=== PATIENT | female | born 1960 | race Caucasian/White ===

== ENCOUNTER 2020-03-03 13:22 | Outpatient (CLI) | payer OTHER, SELFPAY ==
--- NOTE | 2020-03-03 14:10 | XRR_ITS ---
PROCEDURE INFORMATION: Exam: XR Abdomen, 1 View Exam date and time: 03/03/2020 2:14 PM Age: 59 years old Clinical indication: Condition or disease; Kidney or ureter condition; Calculus (stone) in kidney; Prior surgery; Surgery date: 6+ months; Surgery type: Hysterectomy; Patient HX: HX of renal stone; Follow up TECHNIQUE: Imaging protocol: XR of the abdomen. Views: Frontal supine view of the abdomen. 1 View. COMPARISON: CR XR KUB [id number] 09/11/2018 9:43 AM FINDINGS: Gastrointestinal tract: Normal. No bowel dilation. Organs: No kidney or ureteral stone evident. Prior cholecystectomy. Bones/joints: Right hip arthroplasty in place. Soft tissues: Extensive soft tissue calcifications throughout lower abdomen and pelvis, presumably old injection sites. XR/XR KUB [id number] IMPRESSION: No kidney or ureteral stone evident.
== END 2020-03-03 13:23 | disposition home or self-care (01) ==
LOC: RAD 13:25
PROVIDERS: PCP Nurse Practitioner; Visit Provider Urology
DX: N20.0 Calculus of kidney (principal)
CPT/HCPCS: 74018; 81001

== ENCOUNTER 2020-08-23 07:28 | Emergency (ER) | payer OTHER, SELFPAY ==
[2020-08-23] VITALS (7 sets, daily range): BP systolic 145–196; BP diastolic 67–91; PULSE 68–84; RESP 16–18; TEMP 36.9; O2SAT 95–99; BMI 24.2
--- NOTE | 2020-08-23 07:39 | CT_ITS ---
WS: [id number] CT CERVICAL SPINE HISTORY: fall/trauma TECHNIQUE: Contiguous 2.5 mm axial imaging performed through the entire cervical spine. Sagittal and coronal reformats also performed. All CT scans at [facility] use at least one of these do se optimization techniques: automated exposure control; mA and/or kV adjustment per patient size (inc ludes targeted exams where dose is matched to clinical indication); or iterative reconstruction. DLP: 400.66 mGy.cm COMPARISON: None available. Normal cervical alignment. Craniocervical junction, atlantodental interval and C1-C2 alignment is nor mal. Facet joint narrowing and arthritis throughout the cervical spine. Facet joints are normally aligned. No cervical fracture is identified. Lateral masses of C1 and C2 are aligned. Craniocervical junction is intact. No central stenosis or acute-appearing disc herniations. Lung apices are clear. CT/CT cervical spin wo con* [id number] IMPRESSION: 1. No acute cervical spine fracture identified. 2. Facet joint arthritis.
--- NOTE | 2020-08-23 07:39 | ED_ITS ---
Documented by User: [email or web address] Mcwilliams 08/23/20 10:21 HPI - Head Injury General: Chief complaint: Head Injury Stated complaint: FALL, LAC ON HEAD Time Seen by Provider: 08/23/20 07:33 Source: patient Mode of arrival: EMS Limitations: no limitations History of Present Illness: HPI Narrative: Patient is a very nice 60-year-old female who presents to ED today with complaints of a head injury. Patient tells me she accidentally backed into a few boxes causing her to fall backwards and strike the posterior aspect of her head. She denies LOC. Incident was approximately 1.5 hours ago. She currently complains of nausea with vomiting and dizziness. Patient is on Xarelto. She has mild tailbone pain but is ambulating without difficulty. MD Complaint: head injury Onset (ago): hour(s) Mechanism of Injury: fall Place: home Loss of Consciousness: no Associated symptoms: Reports nausea and vomiting; Deny neck pain Review of Systems Const: Denies: fever(s), chills or body aches Eyes: Denies: change in vision, blurry vision or photophobia Card: Denies: chest pain Resp: Denies: dyspnea GI: Reports: nausea and vomiting; Denies: abdominal pain or diarrhea Musc: Reports: back pain (tailbone pain); Denies: neck pain, extremity pain, extremity swelling, joint pain or joint swelling Skin/Breast: Reports: other (scalp laceration) Neuro: Reports: headache(s); Denies: numbness in extremities, weakness in extremities or sensory changes [facility] ED PFSH: Medical History (Updated 08/23/20 @ 10:45 by Bj George DO) Afib Calculus of kidney Fatty liver Hypokalemia Personal history of urinary (tract) infections Rheumatoid arthritis S/P extracorporeal shock wave therapy Thrombocytopenia Surgical History History of cardiac radiofrequency ablation History of total right hip replacement Hx of cholecystectomy Hx of hysterectomy, total Family History Family/Other Diabetes Hypertension Lung disease Thyroid disease Arthritis Social History Smoking and tobacco status: never smoked Alcohol intake: never Marital status: Current occupational status: employed Physical Exam Const: COMMON NORMALS: no acute distress, average body habitus, patient oriented x3, no limitations, healthy appearing, alert and well nourished ORIENTATION/CONSCIOUSNESS: Yes oriented to person, Yes oriented to place and Yes oriented to time HENMT: FACE & SINUS: normal facial exam OTHER: dried blood and scalp laceration to posterior scalp; no active bleeding; laceration approximately 2cm Neck/C-Spine: COMMON NORMALS: full ROM GENERAL: Yes normal visual inspection CERVICAL SPINE: Yes cervical ROM normal Chest: COMMONS NORMALS: normal inspection of the chest and normal palpation of entire chest wall Resp: COMMON NORMALS: normal respiratory effort and clear to auscultation bilaterally AUSCULTATION: clear to auscultation bilaterally Cardio: COMMON NORMALS: regular rate and regular rhythm RATE: regular rate RHYTHM: regular rhythm Back/Pelvis: COMMON NORMALS: thoracic and lumbar spine normal to inspection, no thoracic nor lumbar tenderness, thoraco-lumbar ROM normal and straight leg raise negative bilaterally COCCYX: Coccyx tenderness present (mild) Extremity: COMMON NORMALS: normal to inspection and full ROM GENERAL: Yes normal exam except as noted Neuro: ANTHONY COMA SCALE: document GCS findings Anthony coma scale eye opening: Spontaneous Anthony coma scale verbal response: Orientated Heth coma scale motor response: Obey commands Heth coma scale total score: 15 COMMON NORMALS: patient oriented x3, CN's II-XII intact bilaterally, moves all e xtremities, no focal motor deficits and no sensory deficits noted SENSORIUM/ORIENTATION: Yes alert, Yes oriented to person, Yes oriented to place and Yes oriented to time Skin: NARRATIVE SKIN EXAM: scalp laceration Procedures Laceration Laceration 1: Site: scalp Size (cm): 2.0 Description: irregular Depth: simple, single layer Local Anesthetic: lidocaine 1% and with epi Amount of anesthesia used (mL): 2.0 Pre-repair: wound explored and irrigated extensively Skin layer closed with: nylon Size (cm): 5-0 Number of sutures: 5 Technique: simple, interrupted Course ED course: CT was called immediately after my exam to take pt STAT to CT as I was concerned for intracranial hemorrhage Vital Signs: Vital signs: Vital Signs Temperature 98.5 F 08/23/20 07:29 Pulse Rate 75 08/23/20 10:20 Respiratory Rate 18 08/23/20 10:20 Blood Pressure 145/87 08/23/20 10:20 Pulse Oximetry 99 08/23/20 10:20 MDM - Head Injury MDM Narrative: Medical decision making narrative: Dr. George made aware of patient and was again notified as soon as I received CT report. He will evaluate patient and speak to outside facility for transfer. Lab Data: Labs: Lab Results 08/23/20 08/23/20 08/23/20 Range/Units 09:09 09:09 09:09 WBC 7.7 (4.0-10.0) 10^3/ uL RBC 4.40 (4.1-5.3) 10^6/u L Hgb 12.4 (11.5-15.3) g/dL Hct 37.3 (37.0-47.0) % MCV 84.8 (81-99) fL MCH 28.2 (28.0-34.0) pg MCHC 33.2 (30.0-36.0) g/dL RDW 13.2 (12.1-15.1) % Plt Count 102 L (130-400) 10^3/c mm MPV 11.2 H (7.4-10.4) fL Neut % (Auto) 83.4 % Lymph % (Auto) 11.2 % [place] % (Auto) 4.2 % Eos % (Auto) 0.4 % Baso % (Auto) 0.3 % Neut # (Auto) 6.41 (1.8-7.7) 10^3/u L Lymph # (Auto) 0.9 (0.8-4.8) 10^3/u L [place] # (Auto) 0.3 (0.2-0.9) 10^3/u L Eos # (Auto) 0.0 (0.0-0.8) 10^3/u L Baso # (Auto) 0.0 (0.0-0.1) 10^3/u L Nucleated RBC % (a uto) 0 % Nucleated RBCs # 0.0 /100WBC PT 22.60 H (12.1-14.9) SECO NDS INR 1.92 H (0.8-1.2) APTT 30.6 (23.9-36.7) SECO NDS Sodium 138 (136-145) mmol/L Potassium 3.7 (3.5-5.1) mmol/L Chloride 100 (98-107) mmol/L Carbon Dioxide 25 (22-29) mmol/L Anion Gap 16.7 (5-19) BUN 13 (8-23) mg/dL Creatinine 0.3 L (0.5-0.9) mg/dL GFR Calculation 226.9 H (90-130) mL/min Glucose 273 H (65-115) mg/dL Calculated Osmolal ity 296 H (285-295) mOsm/k g Calcium 8.9 (8.5-10.5) mg/dL Total Bilirubin 0.6 (0.15-1.2) mg/dL AST 36 H (0-32) U/L ALT 41 H (0-33) U/L Alkaline Phosphata se 72 (35-105) IU/L Total Protein 6.8 (6.6-8.7) g/dL Albumin 4.1 (3.5-5.2) g/dL Globulin 2.7 (1.3-4.6) g/dL Imaging Data^: CT Head: Radiologist's impression: [address] [address] [address] Scan Report Signed Patient: Leslie Calzada Unit #: [id number] : 1960 Age/Sex: 60 / F ADM Date: 08/23/20 Loc: ER Room/Bed: Attending Dr: Ordering Provider/Ordering MD: Renita Lyles Date of Service: 08/23/20 Procedure(s): CT head wo con* [id number] Accession Number(s): [id number] Report Number: [id number] WS: [id number] CT HEAD NONCONTRAST HISTORY: trauma/fall/laceration TECHNIQUE: Contiguous axial imaging performed through the brain in 2.5 mm imaging. Bone and soft tissue windows. Sagittal and coronal reformats reviewed. All CT scans at [facility] use at least one of these dose optimization techniques: automated exposure control; mA and/or kV adjustment per patient size (includes targeted exams where dose is matched to clinical indication); or iterative reconstruction. DLP: 799.92 mGy.cm COMPARISON: None available. Acute hemorrhagic contusions are noted within the anterior temporal lobes bilaterally and also involving the anterior inferior frontal lobes bilaterally. Additional tiny hemorrhagic contusion or subarachnoid blood in the anterior RIGHT frontal lobe, best seen on image 18 of series 2. Increased density along the LEFT sylvian fissure may be small amount of subarachnoid blood. No midline shift. No atrophy or prior infarcts or herniation. Ventricles: Normal size with no hydrocephalus. Paranasal sinuses: As visualized are clear. Mastoid air cells: Well pneumatized. Calvarium and scalp: No skull fracture identified. Soft tissue laceration with scalp hematoma centered over the RIGHT posterior calvarium. CT/CT head wo con* [id number] IMPRESSION: 1. Acute hemorrhagic contusions involving the anterior temporal lobes and the frontal lobes bilaterally. Additional subarachnoid component is suspected along the LEFT sylvian fissure. 2. No skull fracture. Soft tissue laceration and hematoma over the posterior RIGHT calvarium. Dictated By: Lara Morse DO Signed By: Lara Morse DO Signed Date/Time: 08/23/20821 DD/ 5 CT cervical: Radiologist's impression: [address] [address] [address] Scan Report Signed Patient: Leslie Calzada Unit #: [id number] : 1960 Age/Sex: 60 / F ADM Date: 08/23/20 Loc: ER Room/Bed: Attending Dr: Ordering Provider/Ordering MD: Renita Lyles Date of Service: 08/23/20 Procedure(s): CT cervical spin wo con* [id number] Accession Number(s): [id number] Report Number: [id number] WS: [id number] CT CERVICAL SPINE HISTORY: fall/trauma TECHNIQUE: Contiguous 2.5 mm axial imaging performed through the entire cervical spine. Sagittal and coronal reformats also performed. All CT scans at [facility] use at least one of these dose optimization techniques: automated exposure control; mA and/or kV adjustment per patient size (includes targeted exams where dose is matched to clinical indication); or iterative reconstruction. DLP: 400.66 mGy.cm COMPARISON: None available. Normal cervical alignment. Craniocervical junction, atlantodental interval and C1-C2 alignment is normal. Facet joint narrowing and arthritis throughout the cervical spine. Facet joints are normally aligned. No cervical fracture is identified. Lateral masses of C1 and C2 are aligned. Craniocervical junction is intact. No central stenosis or acute-appearing disc herniations. Lung apices are clear. CT/CT cervical spin wo con* [id number] IMPRESSION: 1. No acute cervical spine fracture identified. 2. Facet joint arthritis. Dictated By: Lara Morse DO Signed By: Lara Morse DO Signed Date/Time: 08/23/20827 DD/ 2 Discharge Plan Discharge Patient Disposition: Transfer to ED Clinical Impression: Subarachnoid hemorrhage following injury, Intracranial hemorrhage, On continuous oral anticoagulation Condition: Stable Prescriptions: No Action hydroxyzine HCl 25 mg tablet 25 mg PO BID PRNRF: 0 Xarelto 20 mg tablet 20 mg PO DAILY RF: 0 omeprazole 20 mg capsule,delayed release(DR/EC) 20 mg PO DAILY RF: 0 diltiazem HCl 360 mg capsule,extended release 24 hr 360 mg PO DAILY RF: 0 chlorthalidone 25 mg tablet 25 mg PO DAILY RF: 0 propafenone 150 mg tablet 150 mg PO TID PRNRF: 0 magnesium oxide 400 mg magnesium capsule 400 mg PO DAILY RF: 0 potassium chloride 10 mEq capsule, extended release 10 meq PO DAILY RF: 0 prednisolone 5 mg tablet 5 mg PO DAILY RF: 0 atenolol 100 mg tablet 100 mg PO DAILY RF: 0 aspirin [Adult Aspirin Regimen] 81 mg tablet,delayed release (DR/EC) 81 mg PO DAILY RF: 0 Referrals: [facility] Merino, [facility] [Primary Care Provider] - Sign Out Sign Out Data: Patient Sign Out occurred on 08/23/20 at 09:54. Patient's care was discussed, and care was transferred from to Bj George DO. 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 She has no vomiting but she has had some nausea since this happened she has no loss of consciousness she is on Xarelto only took her last dose last night. MD Complaint: head injury, head pain and fall Onset (ago): minute(s) Mechanism of Injury: fall Place: home Loss of Consciousness: no Location of injury: occipital Severity: moderate Quality: aching Radiation: none Other Injuries: none Context: other anticoagulant use (Xarelto) Associated symptoms: Reports nausea; Deny amnesia, confusion, neck pain, numbness, syncope, tingling, vertigo, visual changes, vomiting or weakness Review of Systems Card: Denies: syncope Resp: Denies: dyspnea, productive cough or non-productive cough GI: Reports: nausea; Denies: vomiting : Denies: flank pain, difficulty voiding, dysuria, urinary frequency or urinary urgency Musc: Denies: neck pain Neuro: Denies: vertigo or confusion PFS ED PFSH: Medical History (Updated 08/23/20 @ 10:45 by Bj George DO) Afib Calculus of kidney Fatty liver Hypokalemia Personal history of urinary (tract) infections Rheumatoid arthritis S/P extracorporeal shock wave therapy Thrombocytopenia Surgical History History of cardiac radiofrequency ablation History of total right hip replacement Hx of cholecystectomy Hx of hysterectomy, total Family History Family/Other Diabetes Hypertension Lung disease Thyroid disease Arthritis Social History Smoking and tobacco status: never smoked Alcohol intake: never Marital status: Current occupational status: employed Physical Exam Const: COMMON NORMALS: no acute distress GENERAL APPEARANCE: cooperative and comfortable ORIENTATION/CONSCIOUSNESS: Yes awake, Yes oriented to person, Yes oriented to place and Yes oriented to time HENMT: COMMON NORMALS: normocephalic, atraumatic and hearing grossly normal bilaterally HEAD & SCALP: normocephalic and atraumatic Eye: COMMON NORMALS: Equal, round and reactive pupils present, EOMs intact bilaterally, conjunctivae normal and no scleral icterus CONJUNCTIVA: Yes conjunctivae normal PUPIL: Yes Equal, round and reactive pupils present Neck/C-Spine: COMMON NORMALS: no JVD Resp: COMMON NORMALS: normal respiratory effort, No retractions, No use of accessory muscles and clear to auscultation bilaterally AUSCULTATION: clear to auscultation bilaterally Cardio: COMMON NORMALS: no JVD, regular rate, regular rhythm and No murmurs present (Cardio) RATE: regular rate RHYTHM: regular rhythm Neuro: SENSORIUM/ORIENTATION: Yes oriented to person, Yes oriented to place and Yes oriented to time Course Vital Signs: Vital signs: Vital Signs Temperature 98.5 F 08/23/20 07:29 Pulse Rate 75 08/23/20 10:20 Respiratory Rate 18 08/23/20 10:20 Blood Pressure 145/87 08/23/20 10:20 Pulse Oximetry 99 08/23/20 10:20 MDM - Head Injury MDM Narrative: Medical decision making narrative: Discussed with ER doctor and neurosurgery on-call at [facility]. They will accept the patient is an ER to ER transfer. Patient has been given TXA as well as started on a nicardipine drip to control blood pressure. Discussed with Dr. Clayton presented the case and reviewed for reversal with Andexxa. Both of us agree and have signed the appropriate paperwork to proceed with the index for reversing agent. The neurosurgeon also agreed. There is going to be a prolonged transfer time due to the fact that we are unable to transfer by air ambulance because of weather. We have to go to [facility] because there are no available beds at any other facility closer by that have appropriate specialty care. [facility] are unable to receive the patient due to no availability of beds. Lab Data: Labs: Lab Results 08/23/20 08/23/20 08/23/20 Range/Units 09:09 09:09 09:09 WBC 7.7 (4.0-10.0) 10^3/ uL RBC 4.40 (4.1-5.3) 10^6/u L Hgb 12.4 (11.5-15.3) g/dL Hct 37.3 (37.0-47.0) % MCV 84.8 (81-99) fL MCH 28.2 (28.0-34.0) pg MCHC 33.2 (30.0-36.0) g/dL RDW 13.2 (12.1-15.1) % Plt Count 102 L (130-400) 10^3/c mm MPV 11.2 H (7.4-10.4) fL Neut % (Auto) 83.4 % Lymph % (Auto) 11.2 % [place] % (Auto) 4.2 % Eos % (Auto) 0.4 % Baso % (Auto) 0.3 % Neut # (Auto) 6.41 (1.8-7.7) 10^3/u L Lymph # (Auto) 0.9 (0.8-4.8) 10^3/u L [place] # (Auto) 0.3 (0.2-0.9) 10^3/u L Eos # (Auto) 0.0 (0.0-0.8) 10^3/u L Baso # (Auto) 0.0 (0.0-0.1) 10^3/u L Nucleated RBC % (a uto) 0 % Nucleated RBCs # 0.0 /100WBC PT 22.60 H (12.1-14.9) SECO NDS INR 1.92 H (0.8-1.2) APTT 30.6 (23.9-36.7) SECO NDS Sodium 138 (136-145) mmol/L Potassium 3.7 (3.5-5.1) mmol/L Chloride 100 (98-107) mmol/L Carbon Dioxide 25 (22-29) mmol/L Anion Gap 16.7 (5-19) BUN 13 (8-23) mg/dL Creatinine 0.3 L (0.5-0.9) mg/dL GFR Calculation 226.9 H (90-130) mL/min Glucose 273 H (65-115) mg/dL Calculated Osmolal ity 296 H (285-295) mOsm/k g Calcium 8.9 (8.5-10.5) mg/dL Total Bilirubin 0.6 (0.15-1.2) mg/dL AST 36 H (0-32) U/L ALT 41 H (0-33) U/L Alkaline Phosphata se 72 (35-105) IU/L Total Protein 6.8 (6.6-8.7) g/dL Albumin 4.1 (3.5-5.2) g/dL Globulin 2.7 (1.3-4.6) g/dL Discharge Plan Discharge Patient Disposition: Transfer to ED Clinical Impression: Subarachnoid hemorrhage following injury, Intracranial hemorrhage, On continuous oral anticoagulation Condition: Stable Prescriptions: No Action hydroxyzine HCl 25 mg tablet 25 mg PO BID PRNRF: 0 Xarelto 20 mg tablet 20 mg PO DAILY RF: 0 omeprazole 20 mg capsule,delayed release(DR/EC) 20 mg PO DAILY RF: 0 diltiazem HCl 360 mg capsule,extended release 24 hr 360 mg PO DAILY RF: 0 chlorthalidone 25 mg tablet 25 mg PO DAILY RF: 0 propafenone 150 mg tablet 150 mg PO TID PRNRF: 0 magnesium oxide 400 mg magnesium capsule 400 mg PO DAILY RF: 0 potassium chloride 10 mEq capsule, extended release 10 meq PO DAILY RF: 0 prednisolone 5 mg tablet 5 mg PO DAILY RF: 0 atenolol 100 mg tablet 100 mg PO DAILY RF: 0 aspirin [Adult Aspirin Regimen] 81 mg tablet,delayed release (DR/EC) 81 mg PO DAILY RF: 0 Referrals: [facility] Merino FNP-C [Primary Care Provider] - Sign Out Sign Out Data: Patient Sign Out occurred on 08/23/20 at 09:54. Patient's care was discussed, and care was transferred from to Bj George DO. Coding Level of Care Code ED Plastic Cnc Machine Operator for [place] Fwd Exam Comprehensive
--- NOTE | 2020-08-23 07:39 | CT_ITS ---
WS: [id number] CT HEAD NONCONTRAST HISTORY: trauma/fall/laceration TECHNIQUE: Contiguous axial imaging performed through the brain in 2.5 mm imaging. Bone and soft tiss ue windows. Sagittal and coronal reformats reviewed. All CT scans at [facility] use at le ast one of these dose optimization techniques: automated exposure control; mA and/or kV adjustment pe r patient size (includes targeted exams where dose is matched to clinical indication); or iterative r econstruction. DLP: 799.92 mGy.cm COMPARISON: None available. Acute hemorrhagic contusions are noted within the anterior temporal lobes bilaterally and also involv ing the anterior inferior frontal lobes bilaterally. Additional tiny hemorrhagic contusion or subarac hnoid blood in the anterior RIGHT frontal lobe, best seen on image 18 of series 2. Increased density along the LEFT sylvian fissure may be small amount of subarachnoid blood. No midline shift. No atrophy or prior infarcts or herniation. Ventricles: Normal size with no hydrocephalus. Paranasal sinuses: As visualized are clear. Mastoid air cells: Well pneumatized. Calvarium and scalp: No skull fracture identified. Soft tissue laceration with scalp hematoma centere d over the RIGHT posterior calvarium. CT/CT head wo con* [id number] IMPRESSION: 1. Acute hemorrhagic contusions involving the anterior temporal lobes and the frontal lobes bilaterally. Additional subarachnoid component is suspected along the LEFT sylvian fissure. 2. No skull fracture. Soft tissue laceration and hematoma over the posterior RI GHT calvarium.
[2020-08-23] MEDS: tetanus-diphtheria tox (adult) 0.5 mL SDV IM (08:09)
[2020-08-23] MEDS: ondansetron 2 mg/ML SDV 2 mL 4 MG IVP ×2 (08:09→09:58)
[2020-08-23 09:21] LABS: Basophils % 0.3 %; Eosinophils % 0.4 %; Hematocrit 37.3 % (37.0-47.0); Hemoglobin 12.4 g/dL (11.5-15.3); Lymphocytes # 0.9 10^3/uL (0.8-4.8); Lymphocytes % 11.2 %; Mean Corpuscular HGB Conc 33.2 g/dL (30.0-36.0); Mean Corpuscular Hemoglobin 28.2 pg (28.0-34.0); Mean Corpuscular Volume 84.8 fL (81-99); Mean Platelet Volume 11.2 fL (7.4-10.4); Monocytes # 0.3 10^3/uL (0.2-0.9); Monocytes % 4.2 %; Neutrophils # 6.41 10^3/uL (1.8-7.7); Neutrophils % 83.4 %; Nucleated Red Blood Cells % 0 %; Platelet Count 102 10^3/cmm (130-400); Red Cell Distribution Width 13.2 % (12.1-15.1); White Blood Count 7.7 10^3/uL (4.0-10.0)
[2020-08-23 09:42] LABS: Alanine Aminotransferase 41 U/L (0-33); Albumin Level 4.1 g/dL (3.5-5.2); Alkaline Phosphatase 72 IU/L (35-105); Anion Gap 16.7 (5-19); Aspartate Amino Transferase 36 U/L (0-32); Blood Urea Nitrogen 13 mg/dL (8-23); Calcium 8.9 mg/dL (8.5-10.5); Carbon Dioxide 25 mmol/L (22-29); Chloride 100 mmol/L (98-107); Globulin 2.7 g/dL (1.3-4.6); Glomerular Filtration Rate 226.9 mL/min (90-130); Glucose 273 mg/dL (65-115); Osmolality Calculated 296 mOsm/kg (285-295); Potassium 3.7 mmol/L (3.5-5.1); Sodium 138 mmol/L (136-145); Total Bilirubin 0.6 mg/dL (0.15-1.2); Total Protein 6.8 g/dL (6.6-8.7)
[2020-08-23] MEDS: nicardipine 20 MG/200 ML PREMIX 50 MG IV (09:43)
[2020-08-23] MEDS: factor xa, inactivated-zhzo 480 MG in empty flexible container 1 EACH, non-DEHP filter ... 24 MG IV (09:48)
[2020-08-23 09:50] LABS: INR 1.92 (0.8-1.2)
[2020-08-23 09:51] LABS: Partial Thromboplastin Time 30.6 SECONDS (23.9-36.7)
[2020-08-23] MEDS: factor xa, inactivated-zhzo 400 MG in empty flexible container 1 EACH, non-DEHP filter ... 180 MG IV (10:01)
== END 2020-08-23 10:25 ==
PROVIDERS: Physician Assistant; Emergency Provider Family Medicine; PCP Nurse Practitioner
DX: S06.6X9A Traumatic subarachnoid hemorrhage with loss of consciousness of unspecified duration, initial encounter (principal); Z79.01 Long term (current) use of anticoagulants; Z79.82 Long term (current) use of aspirin; I48.91 Unspecified atrial fibrillation; W19.XXXA Unspecified fall, initial encounter; Z23 Encounter for immunization
CPT/HCPCS: 12001; 12345; 70450; 72125; 80053; 85025; 85610; 85730; 90471; 90714; 96365; 96366; 96367; 96375; 96376; 99282; 99285; J2405; J7169

== ENCOUNTER 2020-11-02 12:59 | Outpatient (CLI) | payer OTHER, SELFPAY ==
--- NOTE | 2020-11-02 13:21 | CT_ITS ---
WS: [id number] CT scan of the head, 11/02/2020 Clinical Data: SUBDURAL HEMATOMA, SUBARACHNOID HEMORRHAGE Comparison: CT head, 08/23/2020. DLP: 992.[address] scans at [facility] use at least one of these dose optimization techniques: automat ed exposure control; mA and/or kV adjustment per patient size (includes targeted exams where dose is matched to clinical indication); or iterative reconstruction. Findings: The ventricular system is normal without shift. No recent infarct or hemorrhage is seen. The areas of contusion noted on the previous study are now normal. There are no abnormal intracerebral masses. Th e cerebellum and brainstem are not remarkable. Bony windows of the skull and skull base show no fractures or erosions. The internal auditory canals , sella turcica, intraorbital contents, and paranasal sinuses are unremarkable. There is minimal clou diness of the right mastoid air cells which could indicate chronic right mastoiditis. CT/CT head wo con* [id number] Impression: 1. Clearing of frontal lobe contusions. 2. Minimal cloudiness in the right mastoid air cells consistent with chronic ri ght mastoiditis.
== END 2020-11-02 13:00 | disposition home or self-care (01) ==
LOC: RADWPI 13:00
PROVIDERS: PCP Nurse Practitioner; Visit Provider Neurological Surgery
DX: S06.5X9A Traumatic subdural hemorrhage with loss of consciousness of unspecified duration, initial encounter (principal); X58.XXXA Exposure to other specified factors, initial encounter
CPT/HCPCS: 70450

== ENCOUNTER 2021-09-26 14:45 | Outpatient (CLI) | payer OTHER, SELFPAY ==
--- NOTE | 2021-09-26 14:50 | XR_ITS ---
WS: [id number] XR KUB [id number] REASON FOR EXAM: CALCULUS OF KIDNEY FINDINGS: Calculus was identified in the left renal pelvis on CT scan of 12/13/2016. This calculus was visible o n follow-up abdomen films until 01/24/2017. No urinary tract calculi have been identified since that ti me. No urinary tract calculi are identified at this time. XR/XR KUB [id number] IMPRESSION: No urinary tract calculi identified.
== END 2021-09-26 14:46 | disposition home or self-care (01) ==
LOC: RAD 14:47
PROVIDERS: PCP Nurse Practitioner; Visit Provider Urology
DX: N20.0 Calculus of kidney (principal)
CPT/HCPCS: 74018; 81003